=== PATIENT | male | born 1995 | race Caucasian/White ===

== ENCOUNTER 2021-03-31 12:08 | Emergency (ER) | payer BC ==
[2021-03-31] MEDS ORDERED: Sodium Chloride 0.9% 1,000 ML IV ONE (12:15)
[2021-03-31] MEDS ORDERED: Ondansetron 4 MG/2 ML SDV IVPUSH ONE (12:17)
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
[2021-03-31 12:44] LABS: ANION GAP 19.7 mmol/L (5-15); CHLORIDE,CL 103 mmol/L (98-107); SODIUM,NA 145 mmol/L (136-145)
[2021-03-31 13:23] LABS: BARBITURATE SCREEN,URINE NEGATIVE (NEGATIVE); BENZODIAZEPINES SCREEN,URINE NEGATIVE (NEGATIVE); TCA SCREEN,URINE NEGATIVE (NEGATIVE); THC SCREEN,URINE 50 NG/ML NEGATIVE (NEGATIVE)
== END 2021-03-31 13:40 | disposition home or self-care (01) ==
LOC: KA.ED 12:08
DX: F10.129 Alcohol abuse with intoxication, unspecified (principal); S09.90XA Unspecified injury of head, initial encounter; Y90.6 Blood alcohol level of 120-199 mg/100 ml; Y04.0XXA Assault by unarmed brawl or fight, initial encounter; Y92.009 Unspecified place in unspecified non-institutional (private) residence as the place of occurrence of the external cause
CPT/HCPCS: 36415; 80048; 80305-QW; 80307; 85025; 96374; 99283; 99284-25; J2405; J7030

== ENCOUNTER 2023-08-29 22:56 | Emergency (ER) | payer BC ==
[2023-08-29] MEDS: Bacitracin/Neomycin/Polymyxin B Oint 0.9 GM U/D Packet TOP ONE (23:26)
== END 2023-08-29 23:37 | disposition home or self-care (01) ==
LOC: KA.ED 22:56
DX: S01.00XA Unspecified open wound of scalp, initial encounter (principal); W22.8XXA Striking against or struck by other objects, initial encounter
CPT/HCPCS: 99283

== ENCOUNTER 2023-09-01 15:33 | Emergency (ER) | payer OTHER, BC | END 2023-09-01 16:05 | disposition home or self-care (01) | LOC: KA.ED 15:33 | DX: T14.90XA Injury, unspecified, initial encounter (principal); Z86.19 Personal history of other infectious and parasitic diseases; V49.40XA Driver injured in collision with unspecified motor vehicles in traffic accident, initial encounter; Y93.89 Activity, other specified | CPT/HCPCS: 99283 ==